=== PATIENT | female | born 1935 | race Caucasian/White ===

== ENCOUNTER 2019-04-18 07:10 | Inpatient (IN) | payer MEDICARE, OTHER ==
[2019-04-06 09:29] LABS: HEMATOCRIT 36.9 % (37.0-47.0); HEMOGLOBIN 12.1 gm/dL (12.0-15.0); MCH 27.9 pg (26.0-34.0); MCHC 32.7 g/dL (28.0-37.0); MCV 85.3 fL (80.0-100.0); MPV 8.8 fl. (7.2-11.1); RBC 4.33 mil/uL (4.20-5.00); RDW-CV 14.2 % (10.5-14.5); WBC 6.4 thou/uL (4.0-11.0)
[2019-04-06 09:45] LABS: ALBUMIN 3.5 g/dL (3.4-5.0); CALCIUM 9.6 mg/dL (8.5-10.1); CREATININE 0.8 mg/dL (0.6-1.3); POTASSIUM 3.9 mmol/L (3.5-5.1); TOTAL BILIRUBIN 0.6 mg/dL (<0.1-1.0); TOTAL PROTEIN 7.3 g/dL (6.4-8.2)
[2019-04-06 10:13] LABS: PROTIME 10.3 Seconds (9.20-11.50)
[2019-04-06 11:40] LABS: URINE BILIRUBIN NEGATIVE (Negative); URINE BLOOD TRACE (Negative); URINE CLARITY CLEAR; URINE COLOR YELLOW; URINE GLUCOSE-RANDOM NEGATIVE (Negative); URINE KETONES NEGATIVE (Negative); URINE PROTEIN NEGATIVE (Negative); URINE UROBILINOGEN 0.2 E.U./dl (0.2-1.0)
[2019-04-06 11:43] LABS: URINE LEUKOCYTES-REFLEX 2+ (Negative); URINE NITRITE-REFLEX POSITIVE (Negative)
[2019-04-06 11:50] LABS: BACTERIA-REFLEX >30 Many /HPF (None Seen); CASTS None Seen /LPF (None Seen); CRYSTALS None Seen /LPF (None Seen); MUCUS None Seen strn/LPF (None Seen); SQUAMOUS 0-3 Few /LPF (0-3); URINE RBC 0-2 Rare /HPF (0-2)
--- NOTE | 2019-04-06 17:18 | EKG ---
[place] [address] ELECTROCARDIOGRAM REPORT Name: JONY GRANT Room: PRE IN [facility]#: [id number] Admission: Attend Phys: Jayson Richter Discharge: Date of : 35 Report #: [id number] THIS REPORT FOR: //name// [facility] Test Date: 2019-04-06 Test Time: 09:44:08 Pat Name: JONY GRANT Department: Room: Gender: F Clutch Inspector: : 1935 Requested By: Dipesh Shrestha Order Number: [id number] Reading MD: He Stark Measurements Intervals [place] Rate: 79 P: [place]: 45 QRS: 60 QRSD: 114 T: 68 QT: 402 QTc: 461 Interpretive Statements Atrial-paced rhythm No previous ECG available for comparison Electronically Signed On 04-06-2019 17:18:24 CDT by He Stark [email or web address] <ELECTRONICALLY SIGNED> By: He Stark MD, [facility] 04/06/19 1718 0944 0944 He Stark MD, FACC /EPI
[~2019-04-18] VITALS: Ht 152.4 cm; Wt 87.5 kg
--- NOTE | ~2019-04-18 | OP ---
[facility] [address] [place] [address] OPERATIVE REPORT Name: JONY GRANT Room: [address] IN .R.#: [id number] Admission: 04/18/19 Attend Phys: Jayson Richter Discharge: Date of : 35 Report #: [id number] THIS REPORT FOR: //name// CC: Alex Baker DATE OF SERVICE: 04/18/2019 PREOPERATIVE DIAGNOSIS: Left knee osteoarthritis. POSTOPERATIVE DIAGNOSIS: Left knee osteoarthritis. PROCEDURE: Left total knee arthroplasty with Navio. SURGEON: Dipesh Shrestha II, DO BUILDING TECH: JOSE EDUARDO Seth ANESTHESIA: General endotracheal. ESTIMATED BLOOD LOSS: 50 mL. ANTIBIOTICS: Ancef preoperatively. DRAINS: Medium Hemovac. COMPLICATIONS: None. CONDITION: The patient is stable to recovery room. IMPLANTS: Listed in the operative record and progress note. BRIEF HISTORY: The patient was seen in the preoperative area. Preop H and P was performed. Site was marked, questions were answered. Risks and benefits were discussed with the patient in detail about surgery. The patient wished to proceed and assumed all risks. DESCRIPTION OF PROCEDURE: The patient was taken to the operative suite and placed supine on the operative table and given appropriate anesthesia. A well-padded tourniquet applied to the upper thigh, which was inflated to 300 mmHg after gravity exsanguination. The operative knee was sterilely prepped and draped. Surgery began by midline incision. This was carried down through subcutaneous tissues. A medial parapatellar arthrotomy was performed and carried down to bone. The patella was then everted and excess osteophytes were removed from around the femur and tibia. The 2 femoral alignment pins were [facility] [address] [place] [address] OPERATIVE REPORT Name: JONY GRANT Room: [address] IN ..#: [id number] Admission: 04/18/19 Attend Phys: Jayson Richter Discharge: Date of : 35 Report #: [id number] as well as 2 tibial tracker alignment pins through the shafts. The tracker arrays were then applied and the knee was then registered through the AirWatch software. The robot was activated and appropriate drill holes were placed along the femur utilizing robotic assistance and tibia. The guide was then placed and the femoral cutting block was aligned, checked with the robotic assistance and appropriate cut was made. A four-in-one cutting block was then applied, checked for rotational alignment, pinned in appropriate position and appropriate cuts were made. The tibia was then exposed, excess meniscus was removed. Retractors were placed along the collateral ligaments. Tibial cutting block was then applied, checked with the robotic assistance, pinned in appropriate position and appropriate cuts were made. The tibial bone was removed. The tibial baseplate was then applied and checked with a drop jair for rotational alignment and pinned in appropriate position. The femur was then applied, a box cut was reamed. This was then trialed with the appropriate spacer, which showed excellent fit and fill and excellent stability of the knee through all range of motion. The patella was reamed in appropriate fashion and sized for appropriate size. Three peg holes were drilled. It was then trialed and showed excellent flexion, extension and excellent tracking of the patella within the groove. These trials were removed. The tibia was punched in appropriate fashion. Bone ends were cleansed with Pulsavac irrigation. Cement was mixed and applied to the final implants. Knee was then malleted in position, held the knee in extension and compressed to allow cement to cure. After it cured, excess was removed using [place] and osteotome. The wound was then copiously irrigated and the final spacer was then malleted into position. Utilizing the Navio software, this was shown to have excellent reduction of the knee in normal anatomic alignment and full range of motion with both flexion and extension. The tourniquet was deflated. Hemostasis was obtained with electrocautery. The pain cocktail was injected. PRP gel was sprayed to internal aspects of the knee. A medium Hemovac drain was applied. Capsule was closed with #2 FiberWire and #1 Vicryl in [id number] fashion. Skin was closed with 2-0 Vicryl and a 3-0 Monocryl. Tracker pins were removed and the incision sites were closed utilizing a 3-0 nylon. Dermabond and sterile dressing was applied. The patient had an Mike wrap and PolarCare applied. The patient was transported to the recovery room in stable condition. Counts were correct throughout the procedure. By: [id number] Shrestha II, DO /nt
[~2019-04-18 07:10] MED LIST: ACTIGALL300 MG PO; CLARITIN10 MG PO; FLECAINIDE ACET50 M1 PO; LOPRESSOR50 PO
[2019-04-18 08:00] VITALS: BP 136/89
--- NOTE | 2019-04-18 15:01 | NUR ---
PT ADMITTED TO UNIT WITH LT KNEE REPLACEMENT. PT ALERT AND ORIENTED. PT IS ON 3 LITERS O2 BY NASAL CANNULA WITH CAPNO IN PLACE. PULSES 2+ IN ALL EXTREMITIES. HEMOVAC TO LT KNEE. DERMABOND, XEROFORM, TEGADERM, AND PEPE TO LT KNEE. CARIN ON RT LEG. FOOT PUMPS IN PLACE. POLAR PACK TO LT KNEE. PAIN MEDS GIVEN ORDERED. CPM IN ROOM. WALKER AND GAIT BELT IN ROOM. REGULAR DIET. RT LIMB ALERT PRESENT. FALL RISK PRECAUTIONS IN PLACE. WILL CONTINUE TO MONITOR.
[2019-04-18 15:14] VITALS: BP 116/71
--- NOTE | 2019-04-18 16:27 | EKG ---
[place] [address] ELECTROCARDIOGRAM REPORT Name: JONY GRANT Room: [address] ADM IN [facility]#: [id number] Admission: 04/18/19 Attend Phys: Jayson Richter Discharge: Date of : 35 Report #: [id number] THIS REPORT FOR: //name// [facility] Test Date: 2019-04-18 Test Time: 11:39:24 Pat Name: JONY GRANT Department: Room: [facility] Gender: F Culinary Intern: : 1935 Requested By: Herman Crystal Order Number: [id number] Reading MD: Mario Alberto Gallegos Measurements Intervals [place] Rate: 60 P: 107 [place]: 145 QRS: 22 QRSD: 110 T: 68 QT: 456 QTc: 456 Interpretive Statements Sinus rhythm Incomplete left bundle branch block Compared to ECG 04/06/2019 09:44:08 Left bundle-branch block now present Atrial-paced complex(es) or rhythm no longer present Ventricular-paced complex(es) or rhythm no longer present Electronically Signed On 04-18-2019 16:27:27 CDT by Mario Alberto Gallegos [email or web address] <ELECTRONICALLY SIGNED> By: Mario Alberto Gallegos MD, FAC 04/18/19 1627 1139 1139 Mario Alberto Gallegos MD, FAC /EPI
--- NOTE | 2019-04-18 17:11 | NUR ---
PT REMAINED ALERT AND ORIENTED. PT WALKED TO COMMODE WITH 2 ASSIST WITH WALKER AND GAIT BELT. PAIN MEDS GIVEN ORDERED. FALL RISK PRECAUTIONS IN PLACE. HOURLY ROUNDING COMPLETED. WILL CONTINUE TO MONITOR.
[2019-04-18 20:30] VITALS: BP 119/65
[2019-04-19] VITALS: BP 108/68
[2019-04-19 04:00] VITALS: BP 147/78
[2019-04-19 04:06] LABS: HEMOGLOBIN 10.2 gm/dL (12.0-15.0)
--- NOTE | 2019-04-19 05:31 | NUR ---
PT ALERT AND ORIENTED. VSS ON 3L NC. ASSESSMENT COMPLETED AND DOCUMENTED. PT SLEPT MOST OF SHIFT. PT DENIES PAIN THIS SHIFT. CAPNO IN PLACE. DRESSING TO LT KNEE C/D/I. MEDS GIVEN PER EMAR. PT UP TO BSC WITH WALKER, GAIT BELT X1 ASSIST. POLAR PACK IN PLACE. FALL PRECAUTION IN PLACE. HOURLY ROUNDINGS MADE. CALL LIGHT WITHIN REACH. WILL CONTINUE TO MONITOR.
[2019-04-19 07:35] VITALS: BP 116/58
--- NOTE | 2019-04-19 12:00 | NUR ---
PT.UP IN CHAIR. SHE WAS ALERT AND ORIENTED. SHE SAID SHE LIVES IN A HOUSE. HER 2 ADULT GRANDSONS LIVE WITH HER. SHE SAID THEY BOTH WORK AND DAUGHTERS WORK SO THERE IS NO ONE TO HELP HER DURING THE DAY. SHE WOULD LIKE TO GO TO [facility] AT DISCHARGE FOR A SHORT STAY. SHE HAS A FRONT WHEEL WALKER AT HOME. SAID SHE FEELS LIKE SHE IS HAVING SOME ANXIETY. DOESN'T HAVE THIS AT HOME. SHE SAID ITS PROBABLY JUST BEING HERE AND FEAR OF THE UNKNOWN. NURSING INFORMED. REFERRAL FAXED TO [facility] [phone].
[2019-04-19 16:27] VITALS: BP 104/56
--- NOTE | 2019-04-19 17:05 | NUR ---
RECIEVED O.T. EVAL AND TX ORDERS. WILL DEFER TO P.T. AT THIS TIME. PLEASE ORDER FURTHER O.T. SERVICES IF NEEDED.
--- NOTE | 2019-04-19 17:34 | NUR ---
PT REMAINED ALERT AND ORIENTED. PT STATES FEELING FUNNY. GAVE NAUSEA MEDS AND PAIN MEDS TO ALLEIVE PT FEELINGS. PT FEELS IMPROVEMENT, STATES APPETITE DECREASED. PT WORKED WITH THERAPY AND GOT UP TO CHAIR. HEMOVAC REMOVED. PT NEEDED DRESSING CHANGED TO HEMOVAC SITE DUE TO BLEEDING. NEW DRESSING APPLIED AND COBANE WRAPPED AROUND IT WITH CARIN HOSE OVER IT. BLEEDING HAS STOPPED AT THIS TIME. CHECKED DRESSING HOURLY. PT WOULD LIKE FOOD WITH PILLS AND FOR THE MEDS TO BE SPLIT UP DUE TO GIVING HER AN UPSET STOMACH. FALL RISK PRECAUTIONS IN PLACE. HOURLY ROUNDING COMPLETED. WILL CONTINUE TO MONITOR.
[2019-04-19 20:25] VITALS: BP 111/71
[2019-04-20 03:58] LABS: HEMOGLOBIN 9.5 gm/dL (12.0-15.0)
--- NOTE | 2019-04-20 05:17 | NUR ---
PT ALERT AND ORIENTED. VSS ON RA. GAS X ORDERED PER DR CURRY FOR STOMACH GAS. PAIN MEDS GIVEN THIS SHIFT. RELIEFS NOTED. PT UP TO BSC WITH WALKER AND GAIT BELT X1 ASSIST. PT SLEPT THROUGH MOST OF SHIFT. PT VERY PLEASANT AND APPROPRIATE. CALL LIGHT WITHIN REACH. HOURLY ROUNDINGS MADE. WILL CONTINUE TO MONITOR.
[2019-04-20 10:05] VITALS: BP 120/56
--- NOTE | 2019-04-20 11:39 | NUR ---
SPOKE WITH [facility]. THEY CAN ACCEPT PT.TO A SKILLED BED ON WEDNESDAY. PT.INFORMED AND RELIEVED.
[2019-04-20 16:00] VITALS: BP 117/66
--- NOTE | 2019-04-20 19:00 | NUR ---
PATIENT PLEASANT AND COOPERATIVE THRU SHIFT. ALERT AND ORIENTED. SEE MAR FOR PAIN CONTROL. PHYSICAL THERAPY IN WITH PATIENT, SEE NOTES. CPM X1 TODAY. DTR PRESENT IN RM AT END OF SHIFT, SUPPORTIVE. THIGH HIGH TEDS ON. FOOT PUMPS USED. IV SL NOTED WNL. HRLY ROUNDING COMPLETED. ~TJRN
[2019-04-20 21:00] VITALS: BP 99/48
[2019-04-21] VITALS: BP 112/71
[2019-04-21 04:00] VITALS: BP 143/61
--- NOTE | 2019-04-21 07:08 | NUR ---
Alert and oriented x 4. She is up with assist x 1 and walker to bedside commode. L knee mepilex dressing is dry and intact with polarcare in place. She did the CPM -5 to 75 degrees last evening. This morning she says she'll do it after breakfast. She had pain meds x 2 this shift. She has slept intermittenly.
[2019-04-21] MEDS ORDERED: METAMUCIL PACK3.4 GM PO (07:57)
[2019-04-21] MEDS ORDERED: XARELTO10 MG PO (07:57)
[2019-04-21] MEDS ORDERED: HYDROCODON-ACE1 EAC7 PO (07:57)
[2019-04-21] MEDS ORDERED: COLACE 100 MG100 MG PO (07:57)
[2019-04-21] MEDS ORDERED: PERCOCET PO (07:59)
[2019-04-21] MEDS ORDERED: NAPROSYN500 MG PO (07:59)
[2019-04-21 08:00] VITALS: BP 117/57
[2019-04-21] MEDS ORDERED: LIDOCAINE PAIN1 EACH TRANSDERM (08:00)
--- NOTE | 2019-04-21 12:10 | NUR ---
PT.HAS DISCHARGE ORDERS TO GO TO [facility] TODAY. NOTIFIED [facility] AND THEY CAN ACCEPT. FAXED HER DISCHARGE SUMMARY,ORDERS AND ORDERS. CHART TO BE COPIED TO GO WITH PT. RASHEED SHRESTHA TO CALL REPORT. PT.INFORMED AND WILL CALL AND NOTIFY HER FAMILY.
[2019-04-21 14:16] VITALS: BP 117/57
--- NOTE | 2019-04-21 15:24 | NUR ---
REPORT CALLED TO [facility]. OT LEFT VIA WC WITH ALL BELONGINGS
== END 2019-04-21 14:00 | DRG 470 ==
LOC: M.ORTHSURG 07:10 → M.TBA 07:10 → M.SUR 09:18 → EDSTATUS 09:19 → M.PRE 09:20 → M.ORTHSURG 13:53
PROVIDERS: Orthopaedic Surgery; ADMIT Internal Medicine
DX: M17.12 Unilateral primary osteoarthritis, left knee (principal); K74.60 Unspecified cirrhosis of liver; I10 Essential (primary) hypertension; I48.91 Unspecified atrial fibrillation; K21.9 Gastro-esophageal reflux disease without esophagitis; D64.9 Anemia, unspecified; Z60.2 Problems related to living alone; Z88.6 Allergy status to analgesic agent; Z88.1 Allergy status to other antibiotic agents; Z90.49 Acquired absence of other specified parts of digestive tract; Z90.710 Acquired absence of both cervix and uterus; Z98.42 Cataract extraction status, left eye; Z98.41 Cataract extraction status, right eye; Z85.3 Personal history of malignant neoplasm of breast; Z79.899 Other long term (current) drug therapy

== ENCOUNTER 2019-05-21 21:03 | Inpatient (IN) | payer MEDICARE, OTHER ==
[~2019-05-21] VITALS: Ht 152.4 cm; Wt 86.2 kg
--- NOTE | ~2019-05-21 | CON ---
[address] [address] CONSULTATION Name: JONY GRANT Room: [address] IN ..#: [id number] Admission: 05/22/19 Attend Phys: Al Negorn MD Discharge: Date of : 35 Report #: [id number] THIS REPORT FOR: //name// CC: Alex Harvey DO Al Negron DICTATED BY: Lexy Hardin [facility] DATE OF SERVICE: 05/22/2019 Please note at the time of this dictation, the patient was seen and physically examined by myself. REASON FOR CONSULTATION: Abdominal pain, nausea, and vomiting. HISTORY OF PRESENT ILLNESS: This is an 84-year-old female who presented to the Emergency Room after going home from rehab after she had knee surgery in which she was just not feeling right for the last several weeks. She had increasing postprandial epigastric pain and poor appetite. She had vomiting after taking her medicines and she states she has had about a 15-pound weight loss. She denies that she was taking any NSAIDs post surgery. The patient did have an EGD and colonoscopy back in 09/2017 and noted to have grade A esophagitis, small hiatal hernia. She also had grade 1 esophageal varices and was supposed to have a repeat in 1 year, but never did. She had a colonoscopy that had polyps removed that were tubular adenoma, diverticulosis, and nonbleeding internal hemorrhoids at that time. She was diagnosed with cirrhosis by Dr. Shahrzad schultz at [facility] and did not see anybody in particular for that since that time. ALLERGIES: CODEINE and STREPTOMYCIN. MEDICATIONS: From home include flecainide, metoprolol, loratadine, and ursodiol. PAST MEDICAL HISTORY: Cirrhosis, questionable possibly BLACKBURN; hypertension; atrial fibrillation, no anticoagulant therapy; breast cancer in 2001 and GERD. SURGICAL HISTORY: Total knee replacement recently, lumpectomy, appendectomy, cholecystectomy, and hysterectomy. FAMILY HISTORY: Father had cirrhosis secondary to alcohol. SOCIAL HISTORY: Denies any alcohol, tobacco, or illegal drug use. Temporarily was living at a rehab center after she had her knee replaced and [place] [address] CONSULTATION Name: JONY GRANT Room: [address] IN [facility]#: [id number] Admission: 05/22/19 Attend Phys: Al Negron MD Discharge: Date of : 35 Report #: [id number] REVIEW OF SYSTEMS: Twelve-point review of systems is essentially negative except what is mentioned in the HPI. PHYSICAL EXAMINATION: VITAL SIGNS: Temperature 36.7, pulse 62, respirations 15, blood pressure 103/58. HEART: Irregular rate and rhythm. LUNGS: Clear. ABDOMEN: Soft, positive bowel sounds in all 4 quadrants with some epigastric tenderness noted to palpation. LABORATORY DATA: Hemoglobin on admission was 8.7, she was 7.5; white count is 5; platelets 272. B12 of 381. Ferritin 89, iron 22, TIBC 215, and percent sat is 10. GFR of 60. IMPRESSION: 1. Nausea and vomiting. 2. Epigastric pain. 3. Anemia. 4. History of esophageal varices. 5. History of liver disease. 6. History of colon polyps. 7. History of breast cancer. PLAN: 1. EGD today with Dr. Taylor. 2. Further recommendations to be made once the procedure has been performed. Thank you for allowing us to participate in this patient's care. Please do not hesitate to call with any questions in regard to this consult. By: [id number] Taylor MD /nt
--- NOTE | ~2019-05-21 | PROC ---
[address] [address] PROCEDURE REPORT Name: GRANTJONY Kimberly Room: [address] IN .R.#: [id number] Admission: 05/22/19 Attend Phys: Al Negron MD Discharge: Date of : 35 Report #: [id number] THIS REPORT FOR: //name// For GI report, please see the Provation report in Perceptive 7 content. By: [id number] Records Staff [facility] /EFREN
[~2019-05-21 21:03] MED LIST changes: +COLACE 100 MG100 MG PO; +HYDROCODON-ACE1 EAC7 PO; +LIDOCAINE PAIN1 EACH TRANSDERM; +METAMUCIL PACK3.4 GM PO; +NAPROSYN500 MG PO; +PERCOCET PO; +XARELTO10 MG PO
[2019-05-21 21:04] VITALS: BP 158/74
[2019-05-21 22:57] LABS: BACTERIA >30 Many /HPF (None Seen); SQUAMOUS 0-3 Few /LPF (0-3); URINE BILIRUBIN NEGATIVE (Negative); URINE BLOOD 1+ (Negative); URINE CLARITY CLEAR; URINE COLOR YELLOW; URINE GLUCOSE-RANDOM NEGATIVE (Negative); URINE KETONES NEGATIVE (Negative); URINE LEUKOCYTES 1+ (Negative); URINE NITRITE POSITIVE (Negative); URINE PROTEIN TRACE (Negative); URINE RBC 3-10 Few /HPF (0-2); URINE SPECIFIC GRAVITY 1.025 (1.005-1.030); URINE UROBILINOGEN 0.2 E.U./dl (0.2-1.0); URINE WBC 6-15 Few /HPF (0-5)
[2019-05-21 22:58] LABS: CRYSTALS None Seen /LPF (None Seen); HYALINE CASTS 0-3 Few /LPF (None Seen); MUCUS 4-6 Moderate strn/LPF (None Seen)
[2019-05-21 23:00] LABS: ABSOLUTE EOSINOPHILS 0.1 thou/uL (0.0-0.7); ABSOLUTE LYMPHOCYTES 1.5 thou/uL (0.8-5.3); ABSOLUTE MONOCYTES 0.7 thou/uL (0.0-1.2); ABSOLUTE NEUTROPHILS 4.5 thou/uL (1.6-8.1); BASOPHILS 0.5 %; EOSINOPHILS 1.3 %; HEMATOCRIT 26.8 % (37.0-47.0); HEMOGLOBIN 8.7 gm/dL (12.0-15.0); LYMPHOCYTES 22.3 %; MCH 27.1 pg (26.0-34.0); MCHC 32.5 g/dL (28.0-37.0); MCV 83.5 fL (80.0-100.0); MONOCYTES 10.4 %; MPV 8.8 fl. (7.2-11.1); NUCLEATED RBCS 0 /100WBC; PLATELET COUNT* 345 thou/uL (150-400); POLYS 65.5 %; RBC 3.21 mil/uL (4.20-5.00); WBC 6.9 thou/uL (4.0-11.0)
[2019-05-21 23:04] LABS: CALCIUM 9.4 mg/dL (8.5-10.1); CREATININE 0.9 mg/dL (0.6-1.3); POTASSIUM 3.4 mmol/L (3.5-5.1)
[2019-05-21 23:08] LABS: ALBUMIN 3.1 g/dL (3.4-5.0); TOTAL BILIRUBIN 0.5 mg/dL (<0.1-1.0)
[2019-05-22 01:28] VITALS: BP 117/56
[2019-05-22 01:30] VITALS: BP 136/59
[2019-05-22 05:30] VITALS: BP 107/54
--- NOTE | 2019-05-22 05:57 | NUR ---
PATIENT DID NOT REPORT ANY PAIN UPON ADMISSION. SHE SLEPT THROUGH THE SHIFT. SHE WAS GIVEN FENTANYL IN ER BEFORE ADMISSION HERE. SHE DID NOT FOR ANY PAIN MEDS OR HAVE ANY NEW OR WORSENING CONDITIONS DURING NIGHT.
[2019-05-22 07:12] VITALS: BP 103/58
[2019-05-22 08:45] LABS: ABSOLUTE EOSINOPHILS 0.1 thou/uL (0.0-0.7); ABSOLUTE LYMPHOCYTES 1.3 thou/uL (0.8-5.3); ABSOLUTE MONOCYTES 0.5 thou/uL (0.0-1.2); ABSOLUTE NEUTROPHILS 3.1 thou/uL (1.6-8.1); BASOPHILS 0.4 %; EOSINOPHILS 1.7 %; HEMATOCRIT 23.4 % (37.0-47.0); HEMOGLOBIN 7.5 gm/dL (12.0-15.0); LYMPHOCYTES 25.3 %; MCH 26.9 pg (26.0-34.0); MCHC 32.2 g/dL (28.0-37.0); MCV 83.7 fL (80.0-100.0); MONOCYTES 10.5 %; MPV 7.9 fl. (7.2-11.1); NUCLEATED RBCS 0 /100WBC; PLATELET COUNT* 272 thou/uL (150-400); POLYS 62.1 %; RDW-CV 15.9 % (10.5-14.5)
--- NOTE | 2019-05-22 14:19 | NUR ---
Nutrition: Pt admitted with N/V, ?biliary duct block, small hiatal hernia, per notes. Albumin 3.1. Diet advanced to Regular. Pt was not in room at time of attempted visit today. Wt: 189#. Pt was assessed for nsg risk 2 points. Per [employer], no significant wt loss in past month. RD available if needed. Consider Mild risk at this time.
--- NOTE | 2019-05-22 16:16 | NUR ---
ASSESSMENT COMPLETE. PT ALERT AND ORIENTED X4. PT HAD EGD THIS AFTERNOON, SEE PHYSICIAN NOTES. PT GIVEN PROTONIX. PT REPORTS NO APPETITE. PT RESTING WITH FAMILY AT BEDSIDE. PT DENIES NEED FOR PAIN AND NAUSEA MEDICATION. IV FLUIDS INFUSING. PT IS ON ROOM AIR, VSS. PT UP ONE ASSIST WITH WALKER. SEE ASSESSMENT AND VITALS FOR OTHER DETAILS. CALL LIGHT WITHIN REACH, WILL CONTINUE PLAN OF CARE
[2019-05-22 16:30] VITALS: BP 112/53
[2019-05-22 20:57] VITALS: BP 127/62
[2019-05-23 04:37] LABS: HEMATOCRIT 21.7 % (37.0-47.0); HEMOGLOBIN 7.2 gm/dL (12.0-15.0); MCH 27.7 pg (26.0-34.0); MCHC 33.2 g/dL (28.0-37.0); MCV 83.3 fL (80.0-100.0); MPV 8.5 fl. (7.2-11.1); RBC 2.61 mil/uL (4.20-5.00); RDW-CV 15.8 % (10.5-14.5); WBC 3.9 thou/uL (4.0-11.0)
[2019-05-23 05:02] LABS: ALBUMIN 2.4 g/dL (3.4-5.0); CALCIUM 8.5 mg/dL (8.5-10.1); CREATININE 0.8 mg/dL (0.6-1.3); MAGNESIUM 1.9 mg/dL (1.8-2.4); POTASSIUM 3.3 mmol/L (3.5-5.1); TOTAL BILIRUBIN 0.4 mg/dL (<0.1-1.0); TOTAL PROTEIN 5.6 g/dL (6.4-8.2)
--- NOTE | 2019-05-23 06:25 | NUR ---
EVENING ASSESSMENT NO REPORT OF PAIN. SHE DID NOT WANT HER LOVENOX SHOT. SHE WANTED TO AMBULATE AND WORK OUT HER LEGS SO SHE DID IN THE ROOM. SHE SLEPT THROUGH THE EVENING AND WOKE UP TWICE TO USE THE RESTROOM. BOTH TIMES SHE DENIED ANY PAIN. SHE WAS ABLE TO SLEEP THROUGH THE NIGHT.
[2019-05-23 07:40] VITALS: BP 116/61
--- NOTE | 2019-05-23 11:44 | NUR ---
INITIAL ASSESSMENT: Pt evaluated for d/c planning needs. Reviewed chart and spoke with nurse and pt. Pt is alert and oriented. Pt lives in house with 2 adult grandsons. Pt was independent with ADL's prior to admission. Pt was hospitalized at [facility] in March for knee replacement surgery and went to [facility] for rehab. Pt return home after rehab with [facility]. Pt has walker and cane at home. Pt plans on returning home on d/c from hospital with resumption of home health. Will remain available to assist as needed.
--- NOTE | 2019-05-23 15:07 | PATH ---
[address] [address] PATHOLOGY RPT PROCEDURE Name: JONY GRANT Room: [address] IN .R.#: [id number] Admission: 05/22/19 Date of : 35 Discharge: Report #: [id number] Path Case #: [id number] [facility] Accession Number: [id number] . 01 Material submitted: . duodenum - DUODENAL ULCER BIOPSY . 01 Clinical history: . None provided . 02 Diagnosis: Small bowel, duodenum, biopsy: - Small bowel mucosa with mild to moderate chronic inflammation and possible focal superficial erosion. - Normal villous architecture. - No evidence of dysplasia. (MATY:mague; 05/23/2019) MBR/05/23/2019 . 02 Electronically signed: . Orlin Blakely MD, Pathologist NPI- [id number] . 01 Gross description: . Received in formalin labeled "Jony Grant, biopsy duodenal ulcer, rule out dysplacia," are 4 segments of cardenas soft tissue measuring 1.2 x 0.9 x 0.2 cm in aggregate dimensions and ranging from 0.3 to 0.5 cm in maximum dimension. The specimen is submitted entirely in cassette A1. (TSD; 05/22/2019) TOB/TOB . 02 Pathologist provided ICD-10: K29.80 . 02 CPT . 255068 Specimen Comment: A courtesy copy of this report has been sent to Specimen Comment: [phone], , . Specimen Comment: Report sent to ,DR DOMINGUEZ / DR MCCARTHY Performed at: [address], [place] [id number] MD Alonso Hernandez MD Phone: [phone] Performed at: [address] [address] [place], [place] [id number] MD Celso Kirby MD Phone: [phone]
[2019-05-23 15:48] VITALS: BP 116/61
[2019-05-23 16:30] VITALS: BP 122/64
--- NOTE | 2019-05-23 16:56 | NUR ---
PT REMAINED ALERT AND ORIENTED. PT RESTING IN ROOM. PT DENIES ANY PAIN OR NAUSEA/VOMITING AT THIS TIME. POTASSIUM REPLACED ORDERED. FALL RISK PRECAUTIONS IN PLACE. HOURLY ROUNDING COMPLETED. WILL CONTINUE TO MONITOR.
[2019-05-23 21:10] VITALS: BP 141/62
--- NOTE | 2019-05-24 04:46 | NUR ---
PT ALERT AND ORIENTED. VITALS STABLE RA. PT DENIED PAIN. NO NAUSEA OR VOMITING THIS SHIFT. MEDS GIVEN ORDERED. HOURLY ROUNDING COMPLETED. WILL CONTINUE TO MONITOR.
[2019-05-24] MEDS ORDERED: PANTOPRAZOLE SO40 M1 PO (09:21)
[2019-05-24] MEDS ORDERED: CIPRO500 MG PO (09:21)
[2019-05-24] MEDS ORDERED: CARAFATE 1 GM TA1 G1 PO (09:21)
[2019-05-24 09:26] VITALS: BP 115/53
[2019-05-24 12:45] VITALS: BP 116/61
[2019-05-24 13:25] VITALS: BP 116/61
--- NOTE | 2019-05-24 15:08 | NUR ---
DISCHARGE: PATIENT DISCHARGED TO HOME W/ HOME HEALTH ASST. PATIENT ALERT AND ORIENTED, COOPERATIVE W/ ASSESS AND CARES THRU SHIFT. USING [facility] W/ SBA FOR TRANSFERS. DTR PRESENT IN AT TIME OF DISCHARGE. DISCHARGE INSTRUCTIONS REVIEWED W/ PATIENT/DTR. PATIENT STATES VERBALLY OF UNDERSTANDING. COPY OF INSTRUCTIONS AND ORIGINAL SCRIPTS GIVEN TO PATIENT. PATIENT ESCORTED TO AWAITING VEHICLE PER WC W/ PARAKEET RAISER AND DTR PRESENT. DENIES OTHER NURSING NEEDS AT THIS TIME. ~TJRN
--- NOTE | 2019-05-24 15:20 | NUR ---
Pt d/c home today. Faxed home health orders to [facility] and called to confirm receipt. No other needs identified.
== END 2019-05-24 15:08 | disposition home health service (06) | DRG 384 ==
LOC: M.ERS 21:03 → M.ORTHSURG 05-22 00:54 → M.TBA-ER 05-22 00:54 → M.ORTHSURG 05-22 01:16
PROVIDERS: Emergency Medicine; Internal Medicine; ADMIT Internal Medicine
PROC: 0DB98ZX Excision of Duodenum, Via Natural or Artificial Opening Endoscopic, Diagnostic (ICD-10-PCS; principal; 2019-05-22)
DX: K26.9 Duodenal ulcer, unspecified as acute or chronic, without hemorrhage or perforation (principal); N39.0 Urinary tract infection, site not specified; K29.80 Duodenitis without bleeding; K74.60 Unspecified cirrhosis of liver; D64.9 Anemia, unspecified; Z96.659 Presence of unspecified artificial knee joint; R63.0 Anorexia; I10 Essential (primary) hypertension; K44.9 Diaphragmatic hernia without obstruction or gangrene; K21.9 Gastro-esophageal reflux disease without esophagitis; I48.91 Unspecified atrial fibrillation; Z95.0 Presence of cardiac pacemaker; Z79.899 Other long term (current) drug therapy; Z88.5 Allergy status to narcotic agent; Z88.1 Allergy status to other antibiotic agents; Z90.49 Acquired absence of other specified parts of digestive tract; Z90.710 Acquired absence of both cervix and uterus; Z85.3 Personal history of malignant neoplasm of breast; Z81.1 Family history of alcohol abuse and dependence; Z68.37 Body mass index [BMI] 37.0-37.9, adult

== ENCOUNTER 2019-08-30 15:35 | Emergency (ER) | payer MEDICARE, OTHER ==
[~2019-08-30] VITALS: Ht 152.4 cm; Wt 86.2 kg
[~2019-08-30 15:35] MED LIST changes: +CARAFATE 1 GM TA1 G1 PO; +CIPRO500 MG PO; +PANTOPRAZOLE SO40 M1 PO
[2019-08-30] MEDS ORDERED: ZPAK PO (17:08)
[2019-08-30] MEDS ORDERED: MEDROLDOSEPACK PO (17:08)
[2019-08-30 17:15] VITALS: BP 164/88
== END 2019-08-30 17:15 | disposition home or self-care (01) ==
LOC: M.ERS 15:35
DX: J32.9 Chronic sinusitis, unspecified (principal); I10 Essential (primary) hypertension; I48.91 Unspecified atrial fibrillation; K74.60 Unspecified cirrhosis of liver; Z95.0 Presence of cardiac pacemaker; Z90.49 Acquired absence of other specified parts of digestive tract; Z90.710 Acquired absence of both cervix and uterus; Z88.1 Allergy status to other antibiotic agents; Z88.6 Allergy status to analgesic agent

== ENCOUNTER 2019-11-26 20:19 | Observation (INO) | payer MEDICARE, OTHER ==
[~2019-11-26] VITALS: Ht 152.4 cm; Wt 89.1 kg
--- NOTE | ~2019-11-26 | EKG ---
[place] [address] ELECTROCARDIOGRAM REPORT Name: JONY GRANT Room: [address]R.#: [id number] Admission: 11/27/19 Attend Phys: Chente Baker Discharge: Date of : 35 Date of Service: 11/26/192024 Report #: [id number] THIS REPORT FOR: cc: Harley Meadows MD, Anthony MD Epiphany, Epiphany MD ~ THIS REPORT FOR: //name// [facility] ED Test Date: 2019-11-26 Test Time: 20:25:38 Pat Name: JONY GRANT Department: Room: [address] Gender: F Orthopaedic Physician Assistant: CRISSY : 1935 Requested By: Kale Maya Order Number: [id number] Reading MD: Measurements Intervals [place] Rate: 74 P: [place]: 253 QRS: 27 QRSD: 107 T: 64 QT: 405 QTc: 450 Interpretive Statements Atrial-paced rhythm No previous ECG available for comparison [email or web address] By: 24 24 Epiphany Epiphany, /EPI
[~2019-11-26 20:19] MED LIST changes: +MEDROLDOSEPACK PO; +ZPAK PO
[2019-11-26 20:26] VITALS: BP 204/106
[2019-11-26] MEDS ORDERED: OMEPRAZOLE40 MG PO (20:34)
[2019-11-26] MEDS ORDERED: CEFDINIR300 MG PO (20:35)
[2019-11-26 22:02] LABS: ABSOLUTE LYMPHOCYTES 1.4 thou/uL (0.8-5.3); ABSOLUTE MONOCYTES 0.5 thou/uL (0.0-1.2); BASOPHILS 0.3 %; EOSINOPHILS 0.4 %; HEMATOCRIT 34.8 % (37.0-47.0); HEMOGLOBIN 11.7 gm/dL (12.0-15.0); LYMPHOCYTES 17.6 %; MCH 28.5 pg (26.0-34.0); MCHC 33.8 g/dL (28.0-37.0); MCV 84.3 fL (80.0-100.0); MONOCYTES 6.4 %; NUCLEATED RBCS 0 /100WBC; PLATELET COUNT* 216 thou/uL (150-400); POLYS 75.3 %; RBC 4.12 mil/uL (4.20-5.00); RDW-CV 14.8 % (10.5-14.5)
[2019-11-26 22:05] LABS: CALCIUM 8.5 mg/dL (8.5-10.1); CREATININE 0.8 mg/dL (0.6-1.3)
[2019-11-26 22:09] LABS: ALBUMIN 3.4 g/dL (3.4-5.0); TOTAL BILIRUBIN 0.7 mg/dL (<0.1-1.0); TOTAL PROTEIN 6.7 g/dL (6.4-8.2)
[2019-11-26 22:16] LABS: APTT 23.8 Seconds (25.0-31.3); PROTIME 10.3 Seconds (9.20-11.50)
[2019-11-26 22:55] LABS: URINE BILIRUBIN NEGATIVE (Negative); URINE BLOOD NEGATIVE (Negative); URINE CLARITY CLEAR; URINE COLOR YELLOW; URINE GLUCOSE-RANDOM NEGATIVE (Negative); URINE KETONES NEGATIVE (Negative); URINE LEUKOCYTES-REFLEX NEGATIVE (Negative); URINE NITRITE-REFLEX NEGATIVE (Negative); URINE PROTEIN NEGATIVE (Negative); URINE SPECIFIC GRAVITY 1.015 (1.005-1.030); URINE UROBILINOGEN 0.2 E.U./dl (0.2-1.0)
[2019-11-27 03:49] VITALS: BP 170/80
[2019-11-27 04:25] VITALS: BP 132/64
[2019-11-27] MEDS ORDERED: MYRBETRIQ50 MG PO (04:39)
--- NOTE | 2019-11-27 07:06 | NUR ---
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 SHE IS ABLE TO COMMUNICATE HER NEEDS TO STAFF EFFECTIVELY. SHE HAS DENIED THE NEED FOR PAIN MEDICATION UP TO THIS TIME. NEUROLOGY CONSULTED.
[2019-11-27 08:00] VITALS: BP 129/64
--- NOTE | 2019-11-27 11:20 | NUR ---
MET WITH PT TO DISCUSS HOME SITUATION/DC PLANNING. PT LIVES WITH HER 2 ADULT GRANDSONS, THEY ASSIST WITH HER WITH IADLS NEEDED, BOTH WORK DURING THE DAY. PT IS INDEPENDENT WITH HER ADLS. USES CANE WHEN SHE IS 'OUT'. IS ABLE TO COOK. PT HAS HAD HH IN PAST AND BEEN TO SNF AT [facility] [place]. DENIES DC NEEDS. GAVE DPOA TO CONSIDER. WILL FOLLOW
--- NOTE | 2019-11-27 12:16 | NUR ---
ASSUMED PT CARE AT 0800, AOX4, UP SBA, USES CANE. O2 SAT 90'S RA. TRACING A PACED, SR ON TELE. PT DENIES PAIN. PT STATUS CHANGE TO OBSEVATION. PT GOAL FOR DISCHARGE. R LIMB ALERT, LAST BM 11/26/19. IV ACCESS INTACT. VSS, AM ASSESSMENT CHARTED, HOURLY ROUNDING, CALL LIGHT WITHIN REACH, WILL CONTINUE TO MONITOR.
[2019-11-27] MEDS ORDERED: ASA81BEC PO (12:44)
[2019-11-27 14:20] LABS: ALBUMIN 3.3 g/dL (3.4-5.0); CREATININE 0.9 mg/dL (0.6-1.3); POTASSIUM 3.4 mmol/L (3.5-5.1); TOTAL BILIRUBIN 0.8 mg/dL (<0.1-1.0); TOTAL PROTEIN 7.2 g/dL (6.4-8.2)
[2019-11-27 14:29] VITALS: BP 111/62
[2019-11-27 15:13] VITALS: BP 111/62
--- NOTE | 2019-11-27 17:08 | 2DMMODE ---
[place] [address] 2 D/M-MODE ECHOCARDIOGRAM Name: JONY GRANT Room: [address] [place]aine#: [id number] Admission: 11/27/19 Attend Phys: Chente Baker Discharge: Date of : 35 Date of Service: 11/27/19 1707 Report #: [id number] THIS REPORT FOR: cc: Harley Meadows MD, Anthony MD Blick,Robert Jerez MD [facility] ~ THIS REPORT FOR: //name// APPROVED REPORT Study performed: 11/27/2019 14:47:55 EXAM: Comprehensive 2D, Doppler, and color-flow Echocardiogram Patient Location: In-Patient Room #: Formerly named [facility] Status: routine BSA: 1.85 HR: 72 bpm BP: 129/64 mmHg Rhythm: NSR Other Information Study Quality: Good Indications CVA/TIA Echo Enhancing Agent Indication: Rule out Shunt Agent(s) / Amount(s) Used: Agitated Saline 10 cc 2D Dimensions IVSd: 10.09 (7-11mm) LVOT Diam: 19.53 (18-24mm) LVDd: 42.76 mm PWd: 10.61 (7-11mm) Ascending Ao: 30.88 (22-36mm) LVDs: 27.24 (25-40mm) Aortic Root: 29.94 mm Volumes Left Atrial Volume (Systole) LA ESV Index: 31.00 mL/m2 Aortic Valve AoV Peak Benny.: 1.67 m/[place] [address] 2 D/M-MODE ECHOCARDIOGRAM Name: RUDYJONY Kimberly Room: [address]#: [id number] Admission: 11/27/19 Attend Phys: Chente Baker Discharge: Date of : 35 Date of Service: 11/27/19 1707 Report #: [id number] AO Peak Gr.: 11.22 mmHg LVOT Max P.31 mmHg AO Mean Gr.: 5.95 mmHg LVOT Mean P.31 mmHg LVOT Max V: 1.68 m/s AO V2 VTI: 28.57 cm LVOT Mean V: 1.05 m/s ALICIA (VTI): 3.18 cm2 LVOT V1 VTI: 30.29 cm AI Liberty: 2.10 m/s2 AI PHT: 512.40 ms Mitral Valve E/A Ratio: 1.23 MV Decel. Time: 257.54 ms MV E Max Benny.: 0.56 m/s MV PHT: 74.69 ms MVA (PHT): 2.95 cm2 TDI E/Lateral E': 5.09 E/Medial E': 7.00 Medial E' Benny.: 0.08 m/s Lateral E' Benny.: 0.11 m/s Pulmonary Valve PV Peak Benny.: 1.14 m/s PV Peak Gr.: 5.22 mmHg Tricuspid Valve RAP Estimate: 5.00 mmHg TR Peak Gr.: 23.19 mmHg RVSP: 28.00 mmHg PA Pressure: 28.00 mmHg Left Ventricle The left ventricle is normal size. There is normal LV segmental wall motion. There is normal left ventricular wall thickness. Left ventricular systolic function is normal. The left ventricular ejection fraction is within the normal range. LVEF is 60-65%. Right Ventricle The right ventricle is normal size. The right ventricular systolic function is normal. Pacemaker lead is present in the right ventricle. Atria Left atrium is mildly dilated. The interatrial septum is intact with no evidence for an atrial septal defect. The right atrium size is normal. Aortic Valve Mild aortic valve sclerosis. Trace aortic regurgitation. There [place] [address] 2 D/M-MODE ECHOCARDIOGRAM Name: JONY GRANT Room: [address] M.R.#: [id number] Admission: 11/27/19 Attend Phys: Chente Baker Discharge: Date of : 35 Date of Service: 11/27/19 1707 Report #: [id number] Mitral Valve There is mitral annular calcification. Trace mitral regurgitation. No evidence of mitral valve stenosis. Tricuspid Valve The tricuspid valve is normal in structure. Trace tricuspid regurgitation. No pulmonary hypertension. Pulmonic Valve Pulmonic valve is not well visualized. There is no pulmonic valvular regurgitation. Great Vessels The aortic root is normal in size. IVC is normal in size and collapses >50% with inspiration. Pericardium There is no pericardial effusion. <Conclusion> LVEF is 60-65%. Left atrium is mildly dilated. The interatrial septum is intact with no evidence for an atrial septal defect. <ELECTRONICALLY SIGNED> By: Robert Villalta MD, FACC 11/27/191706 06 06 Robert Villalta MD, FACC /INF
--- NOTE | 2019-11-27 18:30 | NUR ---
NEUROLOGY OK TO DICHARGE PT. ALL ORDERED TEST AND EVAL DONE. RESULTS ON RECORD. MEDICATION PACKET GIVEN. REMINDED TO FOLLOW UP WITH OPTHALMOLOLOGIST, PCP. IV, TELE REMOVED. ALL BELONGINGS PACKED AND CHECKE LEFT THE UNIT AT 1810.
[2019-11-28 02:06] LABS: GLYCOHEMOGLOBIN (HGB A1C) 5.6 % (4.8-5.6)
== END 2019-11-27 18:06 | disposition home or self-care (01) ==
LOC: M.ERS 20:19 → M.2W 11-27 00:10 → M.TBA-ER 11-27 00:10 → M.2W 11-27 04:05
PROVIDERS: Internal Medicine; Personal Emergency Response Attendant; ADMIT Internal Medicine
DX: R53.81 Other malaise (principal); H53.9 Unspecified visual disturbance; R42 Dizziness and giddiness; I48.91 Unspecified atrial fibrillation; E87.1 Hypo-osmolality and hyponatremia; F03.90 Unspecified dementia, unspecified severity, without behavioral disturbance, psychotic disturbance, mood disturbance, and anxiety; I50.20 Unspecified systolic (congestive) heart failure; I11.0 Hypertensive heart disease with heart failure; Z98.890 Other specified postprocedural states

== ENCOUNTER 2020-06-28 17:23 | Emergency (ER) | payer MEDICARE, OTHER ==
[~2020-06-28] VITALS: Ht 152.4 cm; Wt 90.7 kg
[~2020-06-28 17:23] MED LIST changes: +ASA81BEC PO; +CEFDINIR300 MG PO; +MYRBETRIQ50 MG PO; +OMEPRAZOLE40 MG PO
[2020-06-28 18:15] LABS: ABSOLUTE EOSINOPHILS 0.1 thou/uL (0.0-0.7); ABSOLUTE LYMPHOCYTES 1.9 thou/uL (0.8-5.3); ABSOLUTE MONOCYTES 0.5 thou/uL (0.0-1.2); ABSOLUTE NEUTROPHILS 5.2 thou/uL (1.6-8.1); BASOPHILS 0.6 %; EOSINOPHILS 0.9 %; HEMATOCRIT 36.5 % (37.0-47.0); HEMOGLOBIN 12.6 gm/dL (12.0-15.0); LYMPHOCYTES 24.1 %; MCHC 34.4 g/dL (28.0-37.0); MCV 87.2 fL (80.0-100.0); MONOCYTES 6.1 %; MPV 8.5 fl. (7.2-11.1); NUCLEATED RBCS 0 /100WBC; PLATELET COUNT* 224 thou/uL (150-400); POLYS 68.3 %; RBC 4.18 mil/uL (4.20-5.00); RDW-CV 13.8 % (10.5-14.5); WBC 7.7 thou/uL (4.0-11.0)
[2020-06-28 18:28] LABS: ANION GAP 4 mmol/L (7-16); APTT 24.8 Seconds (25.0-31.3); BUN 16 mg/dL (7-18); CALCIUM 9.3 mg/dL (8.5-10.1); CHLORIDE 102 mmol/L (98-107); CO2 31 mmol/L (21-32); CREATININE 0.9 mg/dL (0.6-1.3); GLUCOSE 115 mg/dL (70-99); POTASSIUM 4.3 mmol/L (3.5-5.1); PROTIME 10.2 Seconds (9.20-11.50); SODIUM 137 mmol/L (136-145)
[2020-06-28 18:38] LABS: ALBUMIN 3.6 g/dL (3.4-5.0); ALKALINE PHOSPHATASE 131 U/L (46-116); AMMONIA < 10 umol/L (11-32); LIPASE 144 U/L (73-393); MAGNESIUM 1.9 mg/dL (1.8-2.4); NT-PRO BRAIN NAT PEPTIDE 210 pg/mL (<300); SGOT 23 U/L (15-37); SGPT 19 U/L (30-65); TOTAL BILIRUBIN 0.5 mg/dL (<0.1-1.0); TOTAL PROTEIN 7.5 g/dL (6.4-8.2)
[2020-06-28 20:00] VITALS: BP 157/84
--- NOTE | 2020-06-29 10:09 | EKG ---
[place] [address] ELECTROCARDIOGRAM REPORT Name: JONY GRANT Room: 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: [facility] : 1935 Requested By: Marilou Smallwood Order Number: [id number] MD: Robert Villalta Measurements Intervals [place] Rate: 63 P: RI: QRS: 21 QRSD: 112 T: 54 QT: 433 QTc: 444 Interpretive Statements atrial paced rhythm Borderline intraventricular conduction delay Compared to ECG 11/26/2019 20:25:38 no change Electronically Signed On 06-29-2020 10:09:54 CDT by Robert Villalta [email or web address] <ELECTRONICALLY SIGNED> By: Robert Villalta MD, [facility] 06/29/20 1009 1746 174 Robert Villalta MD, [facility] /EPI
== END 2020-06-28 20:01 | disposition home or self-care (01) ==
LOC: M.ERS 17:23
PROVIDERS: Personal Emergency Response Attendant
DX: R42 Dizziness and giddiness (principal); I10 Essential (primary) hypertension; I48.91 Unspecified atrial fibrillation; Z90.49 Acquired absence of other specified parts of digestive tract; Z90.710 Acquired absence of both cervix and uterus; Z90.89 Acquired absence of other organs; Z88.5 Allergy status to narcotic agent; Z88.1 Allergy status to other antibiotic agents